=== PATIENT | female | born 1995 | race Asian ===

== ENCOUNTER 2017-09-26 16:05 | Emergency (ER) | payer OTHER, SELFPAY ==
[~2017-09-26] VITALS: Ht 157.5 cm; Wt 50.0 kg
[2017-09-26 16:32] VITALS: BP 107/70
== END 2017-09-26 17:41 | disposition home or self-care (01) ==
LOC: ED 17:35
DX: S16.1XXA Strain of muscle, fascia and tendon at neck level, initial encounter (principal); V49.49XA Driver injured in collision with other motor vehicles in traffic accident, initial encounter; Y93.89 Activity, other specified; Y99.8 Other external cause status; Y92.410 Unspecified street and highway as the place of occurrence of the external cause
CPT/HCPCS: 72050; 99284